=== PATIENT | male | born 1980 | race Two or more races ===

== ENCOUNTER 2018-01-21 00:20 | Inpatient (IN) | payer OTHER ==
[~2018-01-21] VITALS: Ht 170.2 cm; Wt 79.2 kg
[2018-01-21] MEDS ORDERED: SODIUM CHLORIDE 0.9% 1,000 ML IV ONE ×2 (00:45→06:00)
[2018-01-21] MEDS ORDERED: InsuLIN REG 1unit/0.01ml Soln (100units/ml) IV ONE ×2 (00:45→07:00)
[2018-01-21 01:09] LABS: Basophils # (auto) 0.1 uL; Eosinophils # (auto) 0 uL; Eosinophils % (auto) 0.7 % (0.0-7.0); Hematocrit 39.9 % (41.0-53.0); Hemoglobin 13.3 g/dL (13.5-17.5); Lymphocytes # (auto) 1.7 uL; Lymphocytes % (auto) 35.3 % (10.0-50.0); Mean Corpuscular Hemoglobin 29.7 pg (28.0-32.0); Mean Corpuscular Hgb Conc. 33.3 g/dL (32.0-36.0); Mean Corpuscular Volume 89.3 fL (80.0-100.0); Monocytes # (auto) 0.2 uL; Neutrophils # (auto) 2.9 uL; Nucleated Red Blood Cells % 0.1 %; Platelet Count (auto) 184 10^3/uL (140-450); Red Blood Cells 4.47 10^6/uL (4.5-5.90); Red Cell Distribution Width 13.9 % (11.8-14.3); White Blood Cell 4.9 10^3/uL (4.4-10.8)
[2018-01-21 01:24] LABS: INR 1.07 (0.9-1.15); Prothrombin Time 11.4 sec (9.27-12.13)
[2018-01-21 01:26] LABS: Albumin 2.9 g/dL (3.4-5.0); BUN/Creatinine Ratio 11.5; Potassium 3.5 mmol/L (3.5-5.1)
[2018-01-21 01:29] LABS: Bilirubin, Total 0.5 mg/dL (0.2-1.0); Total Protein 5.7 g/dL (6.4-8.2)
[2018-01-21 02:09] LABS: Urine WBC None Seen /hpf (0 - 3)
[2018-01-21 02:25] LABS: Urine Bacteria NONE SEEN /hpf (None Seen); Urine Blood Negative /uL (Negative); Urine Mucus FEW (None Seen); Urine Specific Gravity 1.026 (1.001-1.035)
[2018-01-21 06:34] LABS: BUN/Creatinine Ratio 10.6; Calcium 7.4 mg/dL (8.5-10.1); Potassium 3.4 mmol/L (3.5-5.1)
[2018-01-21] MEDS ORDERED: DEXTROSE (50%) 50ML SYRG IV PRN (07:00)
[2018-01-21] MEDS ORDERED: SODIUM CHLORIDE 0.9% 1,000 ML IV SCH (07:00)
[2018-01-21] MEDS ORDERED: SOD CHL 0.45% 1,000 ML IV ONE (07:00)
[2018-01-21] MEDS ORDERED: POTASSIUM CHL 20 Meq TABLET PO ONE (07:00)
[2018-01-21] MEDS: InsuLIN REG 1unit/0.01ml Soln (100units/ml) SC SCH ×4 (08:00→20:04)
[2018-01-21] MEDS: ACCU-CHEK COMFORT CURVE STRIP VI SCH ×4 (08:16→19:58)
[2018-01-21 12:27] LABS: Alcohol, Urine < 3.0 mg/dL (0-5); Amphetamine Screen, Urine NEGATIVE (NEGATIVE); Barbiturate Scree,Urine NEGATIVE (NEGATIVE); Benzodiazephine Screen, Urine NEGATIVE (NEGATIVE); Cannabinoid Screen, Urine NEGATIVE (NEGATIVE); Cocaine Screen, Urine NEGATIVE (NEGATIVE); Opiate Scree,Urine NEGATIVE (NEGATIVE); Phencyclidine Screen, Urine NEGATIVE (NEGATIVE)
[2018-01-21 13:01] LABS: BUN/Creatinine Ratio 8.2; Calcium 7.5 mg/dL (8.5-10.1); Potassium 3.7 mmol/L (3.5-5.1)
[2018-01-21 16:58] VITALS: BP 109/60
[2018-01-21 22:00] VITALS: BP 110/63
[2018-01-21] MEDS ORDERED: INSULIN LANTUS (GLARGINE) 1 /0.01ml (100units/ml) SC SCH (22:00)
[2018-01-22] MEDS: InsuLIN REG 1unit/0.01ml Soln (100units/ml) SC SCH ×6 (04:00→20:09)
[2018-01-22] MEDS: ACCU-CHEK COMFORT CURVE STRIP VI SCH ×6 (04:17→20:09)
[2018-01-22 05:00] VITALS: BP 104/67
[2018-01-22] MEDS: INSULIN LANTUS (GLARGINE) 1 /0.01ml (100units/ml) SC SCH (06:54)
[2018-01-22 08:43] VITALS: BP 107/67
[2018-01-22 13:01] VITALS: BP 104/61
[2018-01-22 17:09] VITALS: BP 112/68
[2018-01-22 22:00] VITALS: BP 103/60
[2018-01-23] MEDS: ACCU-CHEK COMFORT CURVE STRIP VI SCH ×2 (00:57→04:18)
[2018-01-23] MEDS: InsuLIN REG 1unit/0.01ml Soln (100units/ml) SC SCH ×2 (04:00)
[2018-01-23 05:00] VITALS: BP 107/56
[2018-01-23] MEDS: INSULIN LANTUS (GLARGINE) 1 /0.01ml (100units/ml) SC SCH (06:42)
[2018-01-23 09:10] VITALS: BP 110/61
[2018-01-23 12:01] VITALS: BP 107/63
== END 2018-01-23 12:17 | DRG 637 ==
LOC: EDBD 00:20 → EEVIPCON 00:28 → ER 00:28 → OVERFLOW 00:29 → CENTRAL 15:35
PROVIDERS: ADMIT Nurse Practitioner Family; ATTEND Internal Medicine Pulmonary Disease
DX: E11.10 Type 2 diabetes mellitus with ketoacidosis without coma (principal); G93.41 Metabolic encephalopathy; E44.1 Mild protein-calorie malnutrition; R13.10 Dysphagia, unspecified; R07.0 Pain in throat; R68.2 Dry mouth, unspecified
CPT/HCPCS: 36415; 36600; 80048; 80053; 80307; 81001; 82010; 82805; 82947; 82962; 83036; 83605; 85025; 85610; 85730; 87081; 96361; 96374; J1815